=== PATIENT | male | born 1950 | race Two or more races ===

== ENCOUNTER 2025-05-18 16:55 | Inpatient (IN) | payer MEDICAID ==
[~2025-05-18] VITALS: Ht 175.3 cm; Wt 121.7 kg
[~2025-05-18 16:55] MED LIST: ATOR40TA70 PO; EMPA25TA PO; FURO20TA4 PO; HYDR25TA PO; LIDO35.421 TP; LOSA50TA41 PO; METO-385 PO
[2025-05-18 16:58] VITALS: O2SAT 97
[2025-05-18 23:28] LABS: PLATELET 296 x1000/uL (130-400); RED BLOOD CELL COUNT 3.93 mill/uL (4.7-6.1); RED CELL DISTRIBUTION WIDTH 16.8 % (11.6-14.6)
[2025-05-18 23:42] LABS: CREATININE 0.9 mg/dL (0.6-1.3); UREA NITROGEN BLOOD 21 mg/dL (9-23)
[2025-05-19] VITALS (7 sets, daily range): BP systolic 109–132; BP diastolic 56–68; PULSE 77–94; RESP 18–20; TEMP 36.3–36.7; O2SAT 98–100
[2025-05-19] MEDS ORDERED: CLONIDINE 0.1MG TABLET PO PRN (00:15)
[2025-05-19] MEDS ORDERED: GUAIFENESIN 200MG/10ML SUGAR FREE UDC PO PRN (00:15)
[2025-05-19] MEDS ORDERED: DOCUSATE SODIUM 100MG CAPSULE PO PRN (00:15)
[2025-05-19] MEDS ORDERED: MAGNESIUM/ALUMINUM HYDROXIDE/SIMETHICONE 30ML UDC PO PRN (00:15)
[2025-05-19] MEDS ORDERED: DEXTROSE 50% WATER 50ML SYRINGE IV PRN (00:15)
[2025-05-19] MEDS ORDERED: IPRATROPIUM/ALBUTEROL 0.5-3(2.5)MG/3ML NEB HHN PRN (00:15)
[2025-05-19] MEDS ORDERED: ONDANSETRON HCL 4MG/2ML INJ IV PRN (00:15)
[2025-05-19] MEDS: LOSARTAN 50 MG TABLET PO SCH (00:30)
[2025-05-19] MEDS: METOPROLOL SUCCINATE 50MG ER TABLET PO SCH (00:30)
[2025-05-19 00:51] LABS: TROPONIN I HIGH SENSITIVITY 48 ng/L (3.0-53)
[2025-05-19] MEDS: ENOXAPARIN 30MG/0.3ML SYR SUBCUT SCH (08:54)
[2025-05-19] MEDS: EMPAGLIFLOZIN 25MG TABLET PO SCH (08:55)
[2025-05-19] MEDS: FUROSEMIDE 20MG TABLET PO SCH (08:55)
[2025-05-19] MEDS: HYDROCHLOROTHIAZIDE 25MG TABLET PO SCH (08:55)
[2025-05-19] MEDS: ATORVASTATIN CALCIUM 40MG TABLET PO SCH (08:56)
[2025-05-19] MEDS: KETOROLAC 15MG/ML VIAL IV PRN (09:08)
[2025-05-19] MEDS: FAMOTIDINE 20MG TABLET PO SCH (21:25)
[2025-05-20] VITALS: BP 124/76; PULSE 78; RESP 20; TEMP 36.5; O2SAT 95
[2025-05-20 04:00] VITALS: BP 143/67; PULSE 73; RESP 20; TEMP 35.9; O2SAT 98
[2025-05-20 08:00] VITALS: BP 119/50; PULSE 79; RESP 18; TEMP 36.5; O2SAT 98
[2025-05-20 08:59] LABS: BASOPHILS % 0.4 % (0.0-2.0); EOSINOPHILS % 1.8 % (0.0-5.0); HEMATOCRIT. 33.9 % (42.0-52.0); HEMOGLOBIN. 11.5 g/dL (14.0-18.0); LYMPHOCYTES % 30.9 % (20.0-50.0); MEAN PLATELET VOLUME 8.9 fl (7.4-10.4); MONOCYTES % 11.6 % (2.0-8.0); NEUTROPHILS % 55.3 % (40.0-76.0); PLATELET 248 x1000/uL (130-400); RED BLOOD CELL COUNT 3.58 mill/uL (4.7-6.1); RED CELL DISTRIBUTION WIDTH 17.2 % (11.6-14.6)
[2025-05-20 09:25] LABS: CREATININE 0.9 mg/dL (0.6-1.3); UREA NITROGEN BLOOD 23 mg/dL (9-23)
[2025-05-20 12:00] VITALS: BP 123/76; PULSE 73; RESP 16; TEMP 36.4; O2SAT 97
[2025-05-20 16:00] VITALS: BP 128/61; PULSE 79; RESP 17; TEMP 36.2; O2SAT 97
[2025-05-20 20:00] VITALS: BP 133/59; PULSE 78; RESP 19; TEMP 36.4; O2SAT 97
[2025-05-21] VITALS: BP 129/67; PULSE 79; RESP 18; TEMP 36.6; O2SAT 97
[2025-05-21 04:00] VITALS: BP 126/68; PULSE 77; RESP 18; TEMP 36.6; O2SAT 96
[2025-05-21 08:00] VITALS: BP 127/67; PULSE 74; RESP 19; TEMP 36.1; O2SAT 97
[2025-05-21] MEDS: ACETAMINOPHEN 325MG TABLET PO PRN (09:19)
[2025-05-21 12:00] VITALS: BP_SYST 111; PULSE 74; RESP 18; TEMP 36.4; O2SAT 100
[2025-05-21 15:58] VITALS: BP 123/36; PULSE 68; RESP 68; TEMP 36.4; O2SAT 100
[2025-05-21 16:08] VITALS: BP 123/56; PULSE 68; RESP 20; TEMP 97.5
== END 2025-05-21 17:55 | DRG 340 ==
LOC: ER 16:55 → 6EST 23:03 → EDBEDREQ 23:32 → EDBEDREQTM 23:32 → ENRESERV 23:58
PROVIDERS: ADMIT Internal Medicine; ATTEND Internal Medicine
DX: S72.434A Nondisplaced fracture of medial condyle of right femur, initial encounter for closed fracture (principal); I11.0 Hypertensive heart disease with heart failure; D63.8 Anemia in other chronic diseases classified elsewhere; I50.32 Chronic diastolic (congestive) heart failure; S82.144A Nondisplaced bicondylar fracture of right tibia, initial encounter for closed fracture; M17.0 Bilateral primary osteoarthritis of knee; I87.8 Other specified disorders of veins; X58.XXXA Exposure to other specified factors, initial encounter; E78.00 Pure hypercholesterolemia, unspecified; Y93.89 Activity, other specified; Y92.89 Other specified places as the place of occurrence of the external cause; Y99.8 Other external cause status; Z79.84 Long term (current) use of oral hypoglycemic drugs; Z79.899 Other long term (current) drug therapy
CPT/HCPCS: 36415; 73562; 80048; 82550; 82962; 83880; 84484; 85025; 85027; 97110; 97162; 97166; 97530; 97535; 99285; J1650; J1885